=== PATIENT | male | born 1990 | race African-American/Black ===

== ENCOUNTER 2018-07-27 17:27 | Emergency (ER) | payer MEDICAID ==
[~2018-07-27] VITALS: Ht 157.5 cm; Wt 65.8 kg
[2018-07-27 18:02] VITALS: BP 123/74
[2018-07-27] MEDS ORDERED: KETOROLAC TROMETH 60MG/2ML VIAL IM ONE (19:15)
== END 2018-07-27 19:30 | disposition home or self-care (01) ==
LOC: ER 17:36
DX: S33.5XXA Sprain of ligaments of lumbar spine, initial encounter (principal); M62.830 Muscle spasm of back; X50.0XXA Overexertion from strenuous movement or load, initial encounter; Y93.89 Activity, other specified; Y99.8 Other external cause status; Y92.89 Other specified places as the place of occurrence of the external cause
CPT/HCPCS: 72100; 96372; 99284; J1885

== ENCOUNTER 2018-12-27 18:44 | Emergency (ER) | payer MEDICAID ==
[~2018-12-27] VITALS: Ht 157.5 cm; Wt 61.2 kg
[2018-12-27] MEDS ORDERED: AZITHROMYCIN 250 MG TAB PO ONE (19:45)
[2018-12-27] MEDS ORDERED: cefTRIAXone SOD 1,000 MG VL IM ONE (19:45)
[2018-12-27] MEDS ORDERED: LIDOCAINE 1% HCL (LOCAL ANESTH.) INJ 20ML MDV ONE (19:51)
[2018-12-27 20:11] VITALS: BP 141/85
== END 2018-12-27 20:17 | disposition home or self-care (01) ==
LOC: ER 19:02
DX: R36.9 Urethral discharge, unspecified (principal); F12.90 Cannabis use, unspecified, uncomplicated; Z20.2 Contact with and (suspected) exposure to infections with a predominantly sexual mode of transmission
CPT/HCPCS: 96372; 99283; J0696; J2001

== ENCOUNTER 2019-06-22 07:41 | Emergency (ER) | payer MEDICAID ==
[~2019-06-22] VITALS: Ht 162.6 cm; Wt 63.5 kg
[2019-06-22 08:16] VITALS: BP 123/80
== END 2019-06-22 09:11 | disposition home or self-care (01) ==
LOC: ER 07:43
DX: K64.4 Residual hemorrhoidal skin tags (principal); R30.0 Dysuria; F12.90 Cannabis use, unspecified, uncomplicated
CPT/HCPCS: 81002

== ENCOUNTER 2019-09-01 13:20 | Emergency (ER) | payer MEDICAID ==
[~2019-09-01] VITALS: Ht 162.6 cm; Wt 59.0 kg
[2019-09-01 15:55] VITALS: BP 133/100
== END 2019-09-01 17:49 | disposition home or self-care (01) ==
LOC: ER 13:20
DX: K64.9 Unspecified hemorrhoids (principal); F12.90 Cannabis use, unspecified, uncomplicated

== ENCOUNTER 2019-09-03 11:14 | Emergency (ER) | payer MEDICAID ==
[~2019-09-03] VITALS: Ht 162.6 cm; Wt 58.5 kg
[2019-09-03 11:34] VITALS: BP 110/71
== END 2019-09-03 15:15 | disposition home or self-care (01) ==
LOC: ER 11:18
DX: K64.9 Unspecified hemorrhoids (principal); K59.00 Constipation, unspecified; F12.10 Cannabis abuse, uncomplicated
CPT/HCPCS: 74176